=== PATIENT | female | born 1990 | race Two or more races ===

== ENCOUNTER 2023-01-10 07:24 | Day surgery (SDC) | payer OTHER | END 2023-01-10 16:00 | disposition home or self-care (01) | LOC: CIR.AMB 07:24 | PROVIDERS: ATTEND Obstetrics & Gynecology | DX: N93.8 Other specified abnormal uterine and vaginal bleeding (principal); D25.0 Submucous leiomyoma of uterus; D26.9 Other benign neoplasm of uterus, unspecified; Z20.822 Contact with and (suspected) exposure to COVID-19 ==